=== PATIENT | female | born 1970 | race Caucasian/White ===

== ENCOUNTER → 2016-10-27 | Day surgery (SDC) | payer OTHER | END | disposition home or self-care (01) | LOC: FAS 10:30 | DX: K20.9 Esophagitis, unspecified (principal); K44.9 Diaphragmatic hernia without obstruction or gangrene; K21.9 Gastro-esophageal reflux disease without esophagitis; Z88.8 Allergy status to other drugs, medicaments and biological substances; Z79.01 Long term (current) use of anticoagulants; Z79.899 Other long term (current) drug therapy; Z90.49 Acquired absence of other specified parts of digestive tract; Z98.890 Other specified postprocedural states | CPT/HCPCS: 88305; J2405; J2704 ==